=== PATIENT | male | born 1955 | race Caucasian/White ===

== ENCOUNTER 2021-11-09 15:16 | Emergency (ER) | payer MEDICARE, OTHER ==
[~2021-11-09 15:16] MED LIST: ASPIRIN CHEWABL81 MG PO; CLEOCIN HCL300 MG PO; GLUCOPHAGE XR500 MG PO; HABITROL 21 MG P1 EA TOP; JANUVIA50 MG PO; LEVAQUIN750 MG PO; LIPITOR TAB 2020 MG PO; NORCO 7.5-3251 EACH PO; PLAVIX 75 MG TA75 MG PO; PRINIVIL10 MG PO; SANTYL OINT 3030 GM TP
[2021-11-09 17:37] LABS: RED BLOOD COUNT 4.81 M/UL (4.20-5.50); WHITE BLOOD COUNT 11.1 K/UL (4.5-11.0)
[2021-11-09 17:59] LABS: BUN/CREATININE RATIO 18 (0-10)
== END 2021-11-09 19:03 | disposition left against medical advice (07) ==
LOC: ER1 15:16
PROVIDERS: Emergency Medicine
DX: L53.9 Erythematous condition, unspecified (principal); E11.9 Type 2 diabetes mellitus without complications; J44.9 Chronic obstructive pulmonary disease, unspecified; I10 Essential (primary) hypertension; F17.210 Nicotine dependence, cigarettes, uncomplicated; Z88.8 Allergy status to other drugs, medicaments and biological substances; Z79.84 Long term (current) use of oral hypoglycemic drugs
CPT/HCPCS: 73590; 73630; 80053; 83605; 85025; 85652; 86140; 99281